=== PATIENT | male | born 1965 | race Caucasian/White ===

== ENCOUNTER 2017-03-04 19:44 | Emergency (ER) | payer OTHER ==
--- NOTE | 2017-03-04 21:07 | ER Document Report ---
ED Medical Screen (RME) - General Chief Complaint: Edema Stated Complaint: EYE AND KNEE PAIN Time Seen by Provider: 03/04/17 20:58 Mode of Arrival: Ambulatory Information source: Patient TRAVEL OUTSIDE OF THE [place] IN LAST 30 DAYS: No - HPI Onset: Other - 3-4 WEEKS Onset/Duration: Gradual Quality of pain: Pressure, Other - TIGHTNESS Severity: Moderate Associated Symptoms: Leg swelling, Shortness of breath. denies: Chest pain, Chills, Fever, Sweating Exacerbated by: Standing, Movement, Walking Relieved by: Other - ELEVATION - Related Data Smoking: Cigarettes Frequency of alcohol use: Occasional - 2-3 TIMES A WEEK Drug Abuse: None Allergies/Adverse Reactions: No Known Allergies Allergy (Unverified 11/24/15 19:59) Past Medical History - General Information source: Patient - Social History Cigarette use (# per day): Yes Frequency of alcohol use: Occasional Lives with: Family Family history: None - Past Medical History Cardiac Medical History: Reports: None Pulmonary Medical History: Reports: Hx Pneumonia EENT Medical History: Reports: None Neurological Medical History: Reports: None Endocrine Medical History: Reports: None Renal/ Medical History: Reports: Other - L. HEMINEPHRECTOMY. Denies: Hx Peritoneal Dialysis Malignancy Medical History: Reports Hx Renal (Kidney) Cancer GI Medical History: Reports: Hx Gastroesophageal Reflux Disease Psychiatric Medical History: Reports: None Past Surgical History: Reports: Hx Adenoidectomy, Hx Herniorrhaphy, Hx Kidney ( Renal Surgery), Hx Myringotomy Review of Systems - Review of Systems Constitutional: No symptoms reported EENT: No symptoms reported Cardiovascular: See HPI Respiratory: See HPI Gastrointestinal: No symptoms reported Genitourinary: No symptoms reported Musculoskeletal: No symptoms reported Skin: See HPI Neurological/Psychological: No symptoms reported Physical Exam - Vital signs Vitals: Temp Pulse Resp BP Pulse Ox 98.5 F 97 18 160/101 H 94 03/04/17 20:08 03/04/17 20:08 03/04/17 20:08 03/04/17 20:08 03/04/17 20:08 Interpretation: Hypertensive. No: Tachycardic, Tachypneic, Febrile - General General appearance: Appears well, Alert In distress: None - HEENT Head: Normocephalic Eyes: Normal Conjunctiva: Normal Ears: Normal Nasal: Normal Mouth/Lips: Normal Mucous membranes: Normal - Respiratory Respiratory status: No respiratory distress Breath sounds: Normal - Cardiovascular Rhythm: Regular Murmur: No Gallop: S3 gallop - Abdominal Inspection: Obese - Extremities General upper extremity: Normal inspection General lower extremity: Edema - 3+, BILAT. Calf: Tender, Other - ERYTHEMA - Neurological Neuro grossly intact: Yes - Psychological Associated symptoms: Normal affect, Normal mood - Skin Skin Temperature: Warm Skin Moisture: Dry Skin Color: Normal Skin Turgor: Elastic Skin irregularity: Erythema - BOTH LEGS, Tender indurated area - BOTH LEGS, OOZING YELLOW FLUID Irregularity with: Swelling, Tenderness, Warmth, Weeping Course - Vital Signs Vital signs: Temp Pulse Resp BP Pulse Ox 98.5 F 97 18 160/101 H 94 03/04/17 20:08 03/04/17 20:08 03/04/17 20:08 03/04/17 20:08 03/04/17 20:08
[2017-03-04 21:28] LABS: ABSOLUTE BASOPHILS # (AUTO) 0.1 10^3/uL (0.0-0.2); ABSOLUTE LYMPHOCYTES (AUTO) 1.8 10^3/uL (0.5-4.7); ABSOLUTE MONOCYTES (AUTO) 1.2 10^3/uL (0.1-1.4); ABSOLUTE NEUT (AUTO) 7.5 10^3/uL (1.7-8.2); BASOPHILS % (AUTO) 0.6 % (0-2); EOSINOPHILS % (AUTO) 8.7 % (0-6); HEMATOCRIT 46.1 % (37.9-51.0); HEMOGLOBIN 15.2 g/dL (13.5-17.0); HGB HCT DIFFERENCE -0.5; LYMPHOCYTES % (AUTO) 15.6 % (13-45); MEAN CORPUSCULAR HEMOGLOBIN 29.5 pg (27.0-33.4); MEAN CORPUSCULAR HGB CONC 32.9 g/dL (32.0-36.0); MEAN CORPUSCULAR VOLUME 90 fl (80-97); MONOCYTES % (AUTO) 10.1 % (3-13); RED BLOOD COUNT 5.15 10^6/uL (4.35-5.55); RED CELL DISTRIBUTION WIDTH 14.9 % (11.5-14.0); WHITE BLOOD COUNT 11.6 10^3/uL (4.0-10.5)
[2017-03-04 21:28] LABS: APPEARANCE,URINE SLIGHTLY-CLOUDY; BILIRUBIN,URINE NEGATIVE (NEGATIVE); GLUCOSE, URINE NEGATIVE (NEGATIVE); KETONES,URINE NEGATIVE (NEGATIVE); LEUKOCYTE ESTERASE,URINE TRACE (NEGATIVE); NITRITE,URINE NEGATIVE (NEGATIVE); PROTEIN,URINE NEGATIVE (NEGATIVE); URINE SPECIFIC GRAVITY 1.026; UROBILINOGEN,URINE NEGATIVE mg/dL (<2.0)
[2017-03-04 21:41] LABS: ALANINE AMINOTRANSFERASE 41 U/L (21-72); ALBUMIN 3.8 g/dL (3.5-5.0); ALKALINE PHOSPHATASE 121 U/L (38-126); ANION GAP 8 (5-19); ASPARTATE AMINO TRANSFERASE 21 U/L (17-59); BILIRUBIN,DIRECT 0.4 mg/dL (0.0-0.4); BILIRUBIN,TOTAL 0.4 mg/dL (0.2-1.3); BLOOD UREA NITROGEN 17 mg/dL (7-20); CALCIUM 9.4 mg/dL (8.4-10.2); CARBON DIOXIDE 27 mmol/L (22-30); CHLORIDE 106 mmol/L (98-107); CREATINE KINASE 85 U/L (55-170); CREATININE RESULT 1.33 mg/dL (0.52-1.25); GLUCOSE 110 mg/dL (75-110); POTASSIUM 4.1 mmol/L (3.6-5.0)
[2017-03-04 21:53] LABS: CREATINE KINASE MB 0.75 ng/mL (<4.55)
[2017-03-04 21:54] LABS: TROPONIN I < 0.012 ng/mL
--- NOTE | 2017-03-04 22:30 | ER Document Report ---
ED Extremity Problem, Lower - General Mode of Arrival: Ambulatory Information source: Patient TRAVEL OUTSIDE OF THE [place] IN LAST 30 DAYS: No - HPI Patient complains to provider of: Pain, Swelling Location: Leg Occurred: Other - Refer to HPI notes Onset/Duration: Gradual, Persistent Exacerbated by: Movement, Walking Relieved by: Elevation, Rest <SIDNEY HSU - Last Filed: 03/04/17 23:04> <ANILA MILNER - Last Filed: 03/05/17 01:18> - General Chief Complaint: Edema Stated Complaint: EYE AND KNEE PAIN Time Seen by Provider: 03/04/17 20:58 Notes: Patient is a 52 year old male presenting to the emergency department for bilateral leg edema and erythema. Patient states he has had increased swelling to his lower extremities bilaterally over the past month and it has gotten progressively worse over the past 2-3 days. Patient states over the past 2-3 days he has had erythema and increased pain as well as some oozing of fluid from scabbed areas to his legs bilaterally. Patient states he has tried compression stockings and they just move the fluid into his thighs. Patient states his symptoms are exacerbated with movement and and walking and relieved with elevation. Patinet states denies any chest pain, chills, fevers, or sweats. Patient has a history of GERD for which he is taking Prilosec 20 mg x2 per day, a left partial heminephrectomy, and a left adrenal mass which is still present but is "persistently stable" according to a CT reading in June 2016. Patient has no known drug allergies. Patient's Primary Care Physician is the [facility]. (SIDNEY HSU) - Related Data Allergies/Adverse Reactions: No Known Allergies Allergy (Unverified 11/24/15 19:59) Past Medical History - General Information source: Patient - Social History Smoking Status: Current Every Day Smoker Cigarette use (# per day): Yes Frequency of alcohol use: Occasional Drug Abuse: None Lives with: Family Family History: None Patient has suicidal ideation: No Patient has homicidal ideation: No Pulmonary Medical History: Reports: Hx Pneumonia Renal/ Medical History: Reports: Other - Left partial Heminephrectomy Malignancy Medical History: Reports Hx Renal (Kidney) Cancer, Reports Other - left adrenal mass, 2015 it was persistently stable according to CT scan GI Medical History: Reports: Hx Gastroesophageal Reflux Disease - Prilosec Past Surgical History: Reports: Hx Adenoidectomy, Hx Herniorrhaphy, Hx Kidney ( Renal Surgery), Hx Myringotomy <SIDNEY HSU - Last Filed: 03/04/17 23:04> Review of Systems - Review of Systems Constitutional: No symptoms reported EENT: No symptoms reported Cardiovascular: No symptoms reported Respiratory: No symptoms reported Gastrointestinal: No symptoms reported Genitourinary: No symptoms reported Male Genitourinary: No symptoms reported Musculoskeletal: See HPI, Leg swelling Skin: See HPI, Change in color Hematologic/Lymphatic: No symptoms reported Neurological/Psychological: No symptoms reported -: Yes All other systems reviewed and negative <SIDNEY HSU - Last Filed: 03/04/17 23:04> Physical Exam - Vital signs Interpretation: Hypertensive - General General appearance: Appears well, Alert In distress: Mild - HEENT Head: Normocephalic, Atraumatic Eyes: Normal Pupils: PERRL Mucous membranes: Moist - Respiratory Respiratory status: No respiratory distress - Cardiovascular Rhythm: Regular - Abdominal Inspection: Normal Distension: No distension Bowel sounds: Normal Tenderness: Nontender Organomegaly: No organomegaly - Back Back: Normal, Nontender - Extremities General upper extremity: Normal inspection, Normal ROM, Normal strength General lower extremity: Edema - lower extremities are tight with edema which is worse on the left than the right - Neurological Neuro grossly intact: Yes Cognition: Normal Orientation: AAOx4 [place] Coma Scale Eye Opening: Spontaneous [place] Coma Scale Verbal: Oriented Rubi Coma Scale Motor: Obeys Commands [place] Coma Scale Total: 15 Speech: Normal - Psychological Associated symptoms: Normal affect, Normal mood - Skin Skin Temperature: Warm Skin irregularity: other - lower extremeties are erythematous, warm, and tender to palpatation bilaterally; there is yellow serous fluid oozing from some of the scabs on the skin bilaterally <SIDNEY HSU - Last Filed: 03/04/17 23:04> <ANILA MILNER - Last Filed: 03/05/17 01:18> - Vital signs Vitals: Temp Pulse Resp BP Pulse Ox 98.5 F 97 18 160/101 H 94 03/04/17 20:08 03/04/17 20:08 03/04/17 20:08 03/04/17 20:08 03/04/17 20:08 Course - Laboratory Result Diagrams: 03/04/17 21:05 03/04/17 21:05 <SIDNEY HSU - Last Filed: 03/04/17 23:04> - Laboratory Result Diagrams: 03/04/17 21:05 03/04/17 21:05 - Diagnostic Test Radiology reviewed: Image reviewed, Reports reviewed - The CT scans do not show any venous obstruction. The left adrenal mass remains unchanged from previous CT scans. There appears to be a new heterogeneous mass on the left kidney that is worrisome for tumor recurrence. <ANILA MILNER - Last Filed: 03/05/17 01:18> - Vital Signs Vital signs: Temp Pulse Resp BP Pulse Ox 98.5 F 97 18 160/101 H 94 03/04/17 20:08 03/04/17 20:08 03/04/17 20:08 03/04/17 20:08 03/04/17 20:08 - Laboratory Laboratory results interpreted by me: 03/04/17 03/04/17 03/04/17 21:05 21:05 21:05 WBC 11.6 H RDW 14.9 H Eosinophils % 8.7 H Absolute Eosinophils 1.0 H D-Dimer 1.47 H Creatinine 1.33 H Est GFR (Non-Af Amer) 57 L Ur Leukocyte Esterase Urine Ascorbic Acid 03/04/17 21:10 WBC RDW Eosinophils % Absolute Eosinophils D-Dimer Creatinine Est GFR (Non-Af Amer) Ur Leukocyte Esterase TRACE H Urine Ascorbic Acid 40 H Discharge <SIDNEY HSU - Last Filed: 03/04/17 23:04> <ALFANILA - Last Filed: 03/05/17 01:18> - Discharge Clinical Impression: Bilateral lower leg cellulitis, Left renal mass, Peripheral edema Condition: Stable Disposition: HOME, SELF-CARE Additional Instructions: Cellulitis: You have an infection of your skin and underlying soft tissues called cellulitis. This is due to bacteria, which can enter through any break in the skin, or even through an irritated hair follicle. Untreated, cellulitis will usually worsen. Antibiotics are required. Usually, warm packs or warm soaks, and elevation of the infected area are recommended. You should start getting better within 24 to 36 hours. Most infections respond quickly to the right medication. Follow-up care is important, however, to check for abscess (boil) formation, unsuspected foreign body, or resistant infection. If you develop fever, chills, or if the area of infection is becoming rapidly more swollen or painful, call the doctor at once. Edema, Peripheral: You have swelling in your legs. This is called peripheral edema. It can be caused by "leaky capillaries," inflammation, disease of the leg veins, or excess salt and water in your body. Edema may be a sign of heart, kidney, or liver disease. A medical evaluation can determine if there is a serious underlying cause for your edema. Avoid prolonged standing. If you must sit for a long time, occasionally get up and walk around or elevate your legs. Support stockings can be helpful in limiting swelling. Often diuretic or water pills are used to remove excess salt and water from your body. Call the doctor or return if you develop increased swelling, pain, or redness, shortness of breath, chest pain, or any other significant change. High Blood Pressure: When your blood pressure was taken today it was elevated. Pre-hypertension/Hypertension: The patient has been informed that they may have pre-hypertension or Hypertension based on a blood pressure reading in the emergency department. I recommend that the patient call the primary care provider listed on their dischargge instructions or a physician of their choice this wee to arrage follow up for further evaluation of possible pre- hypertension or Hypertension. Sometimes, stress or illness causes a temporary elevation of your blood pressure. We suggest that you get your blood pressure measured three more times during the next few days to see if this is more than a temporary abnormality. If your blood pressure is greater than 150/90 on each occasion, you must have treatment. Some simple things you can do to help are: If you have blood pressure medicine but aren't using it regularly, start taking it again. Get some aerobic exercise for at least 20 minutes on a daily basis. (See your doctor before beginning a new exercise program.) Eat a low-fat diet. Lose excess weight. Avoid salty foods and avoid adding salt to any of the foods you eat. Avoid diet pills, decongestants, "energizing" herbs, and other medicines that elevate blood pressure. If left untreated, hypertension greatly enhances your risk for developing heart disease and strokes. Please don't ignore this problem. Left Renal Mass: A new mass was seen on your left kidney by CT scan today, compared to the last CT scan done on 06/28/2016. YOUR BLOOD PRESSURE WAS ELEVATED TODAY. YOUR EDEMA AND SCRATCHING HAS CAUSED THE SKIN INFECTION IN THE LEGS. YOUR CT SCAN IS WORRISOME FOR A NEW MASS ON THE LEFT KIDNEY. TAKE THE MEDICATIONS PRESCRIBED. ELEVATE THE FEET ALL THE TIME. KEEP THE SKIN OF THE LEGS CLEAN AND MOISTURIZED. CHECK YOUR BLOOD PRESSURE EVERY DAY. FOLLOW UP WITH YOUR DOCTOR THIS WEEK TO REVIEW ALL OF THE ISSUES IDENTIFIED TONIGHT. RETURN TO THE EMERGENCY ROOM IF ANY NEW OR WORSENING SYMPTOMS. Prescriptions: Cephalexin Monohydrate [Keflex 500 mg Capsule] 500 mg PO QID #28 capsule Oxycodone HCl/Acetaminophen [Percocet 5-325 mg Tablet] 1 - 2 tab PO ASDIR PRN # 15 tablet PRN Reason: Referrals: BIJAN YOUNGBLOOD MD [Primary Care Provider] - Follow up in 3-5 days Scribe Attestation: 03/05/17 01:18 I personally performed the services described in the documentation, reviewed and edited the documentation which was dictated to the scribe in my presence, and it accurately records my words and actions. (ANILA MILNER) Scribe Documentation - Scribe Written by Otoniel:: Otoniel Gipson 03/04/17 22:30 acting as scribe for :: Alf <SIDNEY HSU - Last Filed: 03/04/17 23:04>
--- NOTE | 2017-03-04 22:31 | RADIOLOGY REPORT (SQ) ---
EXAM DESCRIPTION: CHEST PA/LAT COMPLETED DATE/TIME: 03/04/2017 10:23 pm REASON FOR STUDY: EDEMA COMPARISON: 11/24/2015 EXAM PARAMETERS: NUMBER OF VIEWS: two views TECHNIQUE: Digital Frontal and Lateral radiographic views of the chest acquired. RADIATION DOSE: NA LIMITATIONS: none FINDINGS: LUNGS AND PLEURA: No opacities, masses or pneumothorax. No pleural effusion. MEDIASTINUM AND HILAR STRUCTURES: No masses or contour abnormalities. HEART AND VASCULAR STRUCTURES: Heart stable in size. No evidence for failure. BONES: No acute findings. HARDWARE: None in the chest. OTHER: No other significant finding. IMPRESSION: NO SIGNIFICANT RADIOGRAPHIC FINDING IN THE CHEST. TECHNICAL DOCUMENTATION: JOB ID: [id number] [employer]- All Rights Reserved
--- NOTE | 2017-03-05 00:33 | RADIOLOGY REPORT (SQ) ---
EXAM DESCRIPTION: CT CHEST WITH COMPLETED DATE/TIME: 03/05/2017 12:10 am REASON FOR STUDY: bilat leg edema, adrenal mass, renal cancer COMPARISON: CT abdomen and pelvis 03/04/2017, CT chest/abdomen/pelvis 11/24/2015 TECHNIQUE: CT scan of the chest performed using helical scanning technique with dynamic intravenous contrast injection. Images reviewed with lung, soft tissue and bone windows. Reconstructed coronal and sagittal MPR images reviewed. All images stored on PACS. All CT scanners at this facility use dose modulation, iterative reconstruction, and/or weight based d osing when appropriate to reduce radiation dose to as low as reasonably achievable (ALARA). [facility]: Dose Right [facility]: CareDose [facility]: Dose Right [facility]: Teradose 4D [facility]: Bright!Tax CONTRAST TYPE AND DOSE: 100mL Isovue 300- low osmolar. RENAL FUNCTION: Creatinine 1.33 RADIATION DOSE: 41.62 mGy. LIMITATIONS: None. FINDINGS: LUNGS AND PLEURA: No consolidation, pleural effusion or pneumothorax. Mild emphysematous changes in the upper lobes. HILAR AND MEDIASTINAL STRUCTURES: No identified masses or abnormal nodes. HEART AND VASCULAR STRUCTURES: No thoracic aortic aneurysm or dissection. No pericardial effusion. HARDWARE: None in the chest. UPPER ABDOMEN: See separate report of the CT of the abdomen. THYROID AND OTHER SOFT TISSUES: No masses. No adenopathy. BONES: Remote fracture at the sternum. Mild multilevel degenerative changes in the spine. IMPRESSION: No acute findings. Mild emphysema. TECHNICAL DOCUMENTATION: JOB ID: [id number] [place]-64 Quality ID # [id number]: Final reports with documentation of one or more dose reduction techniques (e.g., Au tomated exposure control, adjustment of the mA and/or kV according to patient size, use of iterative reconstruction technique) 2010 [employer]- All Rights Reserved
--- NOTE | 2017-03-05 00:48 | RADIOLOGY REPORT (SQ) ---
EXAM DESCRIPTION: CT ABD/PELVIS WITH IV ONLY COMPLETED DATE/TIME: 03/05/2017 12:19 am REASON FOR STUDY: bilat leg edema, adrenal mass, renal cancer . Status post left partial nephrecto my. COMPARISON: CT chest 03/04/2017, CT abdomen and pelvis 11/24/2015, 06/28/2016. TECHNIQUE: CT scan of the abdomen and pelvis performed using helical scanning technique with dynamic intravenous contrast injection. No oral contrast. Images reviewed with lung, soft tissue, and bone windows. Reconstructed coronal and sagittal MPR images reviewed. Delayed images for evaluation of the urinary system also acquired. All images stored on PACS. All CT scanners at this facility use dose modulation, iterative reconstruction, and/or weight based d osing when appropriate to reduce radiation dose to as low as reasonably achievable (ALARA). [facility]: Dose Right [facility]: CareDose [facility]: Dose Right [facility]: Teradose 4D [facility]: IP [employer] CONTRAST TYPE AND DOSE: 100mL Isovue 300- low osmolar. RENAL FUNCTION: Creatinine 1.33 RADIATION DOSE: mGy. LIMITATIONS: None. FINDINGS: LOWER CHEST: No consolidation or pleural effusion. There is a small hiatal hernia. LIVER: Normal size. No masses or dilated ducts. SPLEEN: Normal size. PANCREAS: No significant calcifications. No adjacent inflammation or peripancreatic fluid collections . Pancreatic duct not dilated. GALLBLADDER: Contracted. ADRENAL GLANDS: The right adrenal gland is unremarkable. Redemonstration of 2.5 cm low-density mass at the left adrenal gland, not significantly changed in the interval. RIGHT KIDNEY AND URETER: No solid masses. No hydronephrosis or hydroureter. LEFT KIDNEY AND URETER: Postsurgical changes are seen at the left kidney. There is a 3.4 x 2.5 cm he terogeneous mass at the superior pole of the left kidney. No hydronephrosis or hydroureter. AORTA AND VESSELS: No abdominal aortic aneurysm. RETROPERITONEUM: No retroperitoneal adenopathy, hemorrhage or masses. BOWEL AND PERITONEAL CAVITY: No dilated bowel loops or inflammatory changes. No free fluid or free ai r. APPENDIX: Normal. PELVIS: The urinary bladder is decompressed. There is no pelvic mass. No free fluid. ABDOMINAL WALL: Small fat containing bilateral inguinal hernias BONES: Degenerative changes in the spine with vacuum disc phenomenon at L5-S1. IMPRESSION: Heterogeneous mass at the left kidney, worrisome for tumor recurrence. Stable 2.5 cm low density mass at the left adrenal gland. Small hiatal hernia. TECHNICAL DOCUMENTATION: JOB ID: [id number] PR- Quality ID # [id number]: Final reports with documentation of one or more dose reduction techniques (e.g., Au tomated exposure control, adjustment of the mA and/or kV according to patient size, use of iterative reconstruction technique) 2010 [employer]- All Rights Reserved
[2017-03-05] MEDS ORDERED: OXYCODONE-ACETAMINOPHEN 5-325 MG TABLET PO ONE (01:18)
[2017-03-05] MEDS ORDERED: CEPHALEXIN 500 MG CAPSULE PO ONE (01:19)
[2017-03-05] MEDS ORDERED: HYDROCODONE/ACETAMINOPHEN 5-325 MG 6 TAB/DSPK PO PRN (01:19)
[2017-03-05] MEDS ORDERED: ONDANSETRON ODT 4 MG TAB (6 TAB/DSPK) PO PRN (01:36)
[2017-03-05 02:11] VITALS: BP 147/93
--- NOTE | 2017-03-05 10:45 | EKG REPORT ---
SEVERITY:- NORMAL ECG - SINUS RHYTHM : Confirmed by: Courtney Rodrigez 05-Mar-2017 10:45:29
== END 2017-03-05 01:50 | disposition home or self-care (01) ==
LOC: ER 19:44
DX: L03.116 Cellulitis of left lower limb (principal); L03.115 Cellulitis of right lower limb; N28.89 Other specified disorders of kidney and ureter; R60.9 Edema, unspecified; H57.10 Ocular pain, unspecified eye; M79.89 Other specified soft tissue disorders; F17.210 Nicotine dependence, cigarettes, uncomplicated
CPT/HCPCS: 36415; 71020; 71260; 74177; 80053; 81001; 82550; 82553; 83880; 84484; 85025; 85379; 93005; 93010; 99284

== ENCOUNTER 2017-03-06 18:14 | Emergency (ER) | payer OTHER ==
[2017-03-06] MEDS ORDERED: ONDANSETRON 4 MG TAB.RAPDIS PO ONE (20:19)
[2017-03-06] MEDS ORDERED: CLINDAMYCIN HCL 150 MG CAPSULE PO ONE (20:19)
[2017-03-06] MEDS ORDERED: PREDNISONE 20 MG TABLET PO ONE (20:19)
[2017-03-06] MEDS ORDERED: ALBUTEROL SULFATE HFA (90 MCG/PUFF) 8 GM MDI (1 MDI/ER DISP) IH ONE (20:19)
--- NOTE | 2017-03-06 20:24 | ER Document Report ---
HPI - HPI Patient complains to provider of: Medication reaction Onset: Yesterday Onset/Duration: Gradual Pain Level: 4 Context: States that he was recently placed on an antibiotic 2 days ago for cellulitis to his lower extremities. Patient states that after taking the medication he has had a skin rash and itching. Patient states that his cellulitis to his extremities has started to improve. Patient denies any difficulty breathing, chest pain or difficulty swallowing. Patient does state that he is a smoker but has not previously been told that he has COPD. Patient is requesting a change in his antibiotic prescription and is requesting a nausea medication to take with his antibiotics as antibiotics typically cause him to become nauseated. Associated Symptoms: Nonproductive cough - Cough, Nausea, Other - Skin rash. denies: Vomiting, Sore throat Exacerbated by: Denies Relieved by: Denies Similar symptoms previously: No Recently seen / treated by doctor: No - ROS ROS below otherwise negative: Yes Systems Reviewed and Negative: Yes All other systems reviewed and negative - CONSTITUTIONAL Constitutional: DENIES: Fever, Chills - EENT EENT: DENIES: Sore Throat - NEURO Neurology: DENIES: Headache - CARDIOVASCULAR Cardiovascular: DENIES: Chest pain - RESPIRATORY Respiratory: REPORTS: Coughing - chronic. 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 Family History: None Patient has suicidal ideation: No Patient has homicidal ideation: No Pulmonary Medical History: Reports: Hx Pneumonia Renal/ Medical History: Denies: Hx Peritoneal Dialysis Malignancy Medical History: Reports Hx Renal (Kidney) Cancer GI Medical History: Reports: Hx Gastroesophageal Reflux Disease - Prilosec Past Surgical History: Reports: Hx Adenoidectomy, Hx Herniorrhaphy, Hx Kidney ( Renal Surgery), Hx Myringotomy Vertical Provider Document - CONSTITUTIONAL Agree With Documented VS: Yes Exam Limitations: No Limitations General Appearance: WD/WN, No Apparent Distress - INFECTION CONTROL TRAVEL OUTSIDE OF THE [place] IN LAST 30 DAYS: No - HEENT HEENT: Atraumatic, Normal ENT Exam, Normocephalic Notes: No Angioedema - NECK Neck: Normal Inspection, Supple. negative: Lymphadenopathy-Left, Lymphadenopathy-Right - RESPIRATORY Respiratory: No Respiratory Distress, Chest Non-Tender, Wheezing O2 Sat by Pulse Oximetry: 94 - CARDIOVASCULAR Cardiovascular: Regular Rate, Regular Rhythm, No Murmur - MUSCULOSKELETAL/EXTREMETIES Musculoskeletal/Extremeties: MAEW - NEURO Level of Consciousness: Awake, Alert, Appropriate Motor/Sensory: No Motor Deficit - DERM Integumentary: Warm, Dry, Rash - Scattered erythematous rash to trunk and extremities Erythema of the bilateral lower extremities consistent with reported history of cellulitis. Review of patient's cell phone pictures from his initial visit demonstrate that erythema has decreased. Course - Vital Signs Vital signs: Temp Pulse Resp BP Pulse Ox 98.6 F 103 H 20 149/78 H 94 03/06/17 18:20 03/06/17 18:20 03/06/17 18:20 03/06/17 18:20 03/06/17 18:20 Discharge - Discharge Clinical Impression: Wheezing, Skin rash Reaction, drug, adverse Qualifiers: Encounter type: initial encounter Qualified Code(s): T88.7XXA - Unspecified adverse effect of drug or medicament, initial encounter Condition: Stable Disposition: HOME, SELF-CARE Instructions: Inhaled Bronchodilators ([facility]), Steroid Medication, Antinausea Medication ([facility]), Clindamycin ([facility]) Additional Instructions: Return as needed for any new or worsening symptoms Follow up with your primary care provider for recheck Albuterol inhaler: 2 puffs every 4 hours as needed for wheezing Prescriptions: Clindamycin HCl [Cleocin Hcl] 300 mg PO QID #28 capsule Ondansetron HCl [Zofran 4 mg Tablet] 1 tab PO Q6 PRN #20 tablet PRN Reason: Prednisone [Deltasone 20 mg Tablet] 3 tab PO DAILY 4 Days Referrals: [facility] [Provider Group] - Follow up tomorrow
[2017-03-06 21:11] VITALS: BP 148/76
== END 2017-03-06 21:07 | disposition home or self-care (01) ==
LOC: ER 18:14
DX: L27.0 Generalized skin eruption due to drugs and medicaments taken internally (principal); R06.2 Wheezing; T36.1X5A Adverse effect of cephalosporins and other beta-lactam antibiotics, initial encounter; F17.200 Nicotine dependence, unspecified, uncomplicated; Z85.528 Personal history of other malignant neoplasm of kidney; K21.9 Gastro-esophageal reflux disease without esophagitis
CPT/HCPCS: 99282; S0119; J7512; J3490

== ENCOUNTER 2018-04-15 20:23 | Emergency (ER) | payer OTHER ==
[~2018-04-15 20:23] MED LIST: ROCURONIUM BROMIDE INJ 50 MG/5 ML VIAL IV ONE
[2018-04-15] MEDS ORDERED: MORPHINE SULFATE 10 MG/ML INJ IV ONE (20:46)
[2018-04-15] MEDS ORDERED: METOCLOPRAMIDE HCL INJ/PF 10 MG/2 ML SDV IV ONE (20:48)
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
[2018-04-15] MEDS ORDERED: ONDANSETRON 4 MG TAB.RAPDIS PO ONE (21:00)
[2018-04-15 21:05] LABS: ABSOLUTE BASOPHILS # (AUTO) 0.1 10^3/uL (0.0-0.2); ABSOLUTE EOSINOPHILS # (AUTO) 0.1 10^3/uL (0.0-0.6); ABSOLUTE LYMPHOCYTES (AUTO) 1.4 10^3/uL (0.5-4.7); ABSOLUTE MONOCYTES (AUTO) 1.7 10^3/uL (0.1-1.4); ABSOLUTE NEUT (AUTO) 11.2 10^3/uL (1.7-8.2); BASOPHILS % (AUTO) 0.6 % (0-2); EOSINOPHILS % (AUTO) 0.9 % (0-6); HEMATOCRIT 43.6 % (37.9-51.0); HEMOGLOBIN 14.5 g/dL (13.5-17.0); LYMPHOCYTES % (AUTO) 9.9 % (13-45); MEAN CORPUSCULAR HEMOGLOBIN 28.9 pg (27.0-33.4); MEAN CORPUSCULAR HGB CONC 33.2 g/dL (32.0-36.0); MEAN CORPUSCULAR VOLUME 87 fl (80-97); MONOCYTES % (AUTO) 11.8 % (3-13); PLATELET COUNT 358 10^3/uL (150-450); RED CELL DISTRIBUTION WIDTH 16.3 % (11.5-14.0); SEGMENTED NEUTROPHILS % (AUTO) 76.8 % (42-78); TOTAL CELLS COUNTED % (AUTO) 100 %; WHITE BLOOD COUNT 14.6 10^3/uL (4.0-10.5)
[2018-04-15] MEDS ORDERED: ONDANSETRON 4 MG TAB.RAPDIS ONE (21:05)
[2018-04-15 21:24] LABS: ALANINE AMINOTRANSFERASE 28 U/L (21-72); ALBUMIN 4.1 g/dL (3.5-5.0); ALKALINE PHOSPHATASE 115 U/L (38-126); ANION GAP 11 (5-19); ASPARTATE AMINO TRANSFERASE 26 U/L (17-59); BILIRUBIN,DIRECT 0.4 mg/dL (0.0-0.4); BILIRUBIN,TOTAL 0.8 mg/dL (0.2-1.3); BLOOD UREA NITROGEN 22 mg/dL (7-20); CALCIUM 9.5 mg/dL (8.4-10.2); CARBON DIOXIDE 30 mmol/L (22-30); CHLORIDE 102 mmol/L (98-107); CREATINE KINASE 307 U/L (55-170); GLUCOSE 114 mg/dL (75-110); POTASSIUM 3.9 mmol/L (3.6-5.0); SODIUM 143.2 mmol/L (137-145); TOTAL PROTEIN 7.3 g/dL (6.3-8.2)
[2018-04-15 21:36] LABS: CREATINE KINASE MB 2.48 ng/mL (<4.55)
[2018-04-15 21:39] LABS: TROPONIN I < 0.012 ng/mL
[2018-04-15] MEDS ORDERED: HYDROMORPHONE HCL INJ/PF 2 MG/ML AMPULE IV PRN (21:46)
--- NOTE | 2018-04-15 21:46 | EKG REPORT ---
SEVERITY:- OTHERWISE NORMAL ECG - SINUS TACHYCARDIA : Confirmed by: Kassandra Robles MD 15-Apr-2018 21:46:12
[2018-04-15] MEDS ORDERED: PROPOFOL INJ 200 MG/20 ML VIAL IV ONE ×2 (22:34→23:10)
--- NOTE | 2018-04-15 22:38 | RADIOLOGY REPORT (SQ) ---
EXAM DESCRIPTION: CTA CHEST COMPLETED DATE/TIME: 04/15/2018 10:23 pm REASON FOR STUDY: crush injury COMPARISON: 03/04/2017 TECHNIQUE: CT scan of the chest performed using helical scanning technique with dynamic intravenous contrast injection. Images reviewed with lung, soft tissue and bone windows. Reconstructed coronal and sagittal MPR images reviewed. Additional 3 dimensional post-processing performed to develop Maximal Intensity Projection images ([place] P). All images stored on PACS. All CT scanners at this facility use dose modulation, iterative reconstruction, and/or weight based d osing when appropriate to reduce radiation dose to as low as reasonably achievable (ALARA). [facility]: Dose Right [facility]: CareDose [facility]: Dose Right [facility]: Teradose 4D [facility]: [employer] CONTRAST TYPE AND DOSE: contrast/concentration: Isovue 370.00 mg/ml; Total Contrast Delivered: 86.0 ml; Total Saline Delivered: 110.0 ml Contrast bolus optimized for the pulmonary arteries. Not diagnostic for the aorta. RENAL FUNCTION: BUN 22; creatinine 1.43 RADIATION DOSE: CT Rad equipment meets quality standard of care and radiation dose reduction techniq ues were employed. CTDIvol: 33.1 - 39.8 mGy. DLP: 1641 mGy-cm. . LIMITATIONS: None. FINDINGS: LUNGS AND PLEURA: Large left-sided pneumothorax. Compressive atelectasis of the left lobe s. Dependent atelectasis of the right lobes. Background of mild centrilobular emphysematous change. No pleural effusion. AORTA AND GREAT VESSELS: No aneurysm. Contrast bolus not optimized for the aorta. HEART: No pericardial effusion. No significant coronary artery calcifications. PULMONARY ARTERIES: No emboli visualized in the main pulmonary arteries or the segmental branches. HILAR AND MEDIASTINAL STRUCTURES: There is no mediastinal shift. No identified masses or abnormal no juan. HARDWARE: None in the chest. UPPER ABDOMEN: Limited exam. Re- demonstration of a left adrenal lipid rich adenoma, unchanged. Sta ble appearance of the left kidney superior pole demonstrating a exophytic mass. THYROID AND OTHER SOFT TISSUES: No masses. No adenopathy. BONES: Mildly displaced transverse fractures of left ribs 3 through 7 laterally noting the above desc ribed pneumothorax as well as subcutaneous emphysema tracking along the extrathoracic soft tissues. 3D MIPS: Confirm above findings. OTHER: No other significant finding. IMPRESSION: 1. No pulmonary embolus. 2. Large left-sided pneumothorax without mediastinal shift. This is on the basis of mildly displace d transverse fractures of left ribs 3 through 7 noting associated subcutaneous emphysema as detailed above. COMMENT: Pertinent findings on the imaging study reported as a CRITICAL RESULT to ROUTE RELIEF DRIVER-HELENA Casanova BA RBEE at22:26 on 04/15/2018. Category of Critical Result: Pneumothorax Quality ID # [id number]: Final reports with documentation of one or more dose reduction techniques (e.g., Au tomated exposure control, adjustment of the mA and/or kV according to patient size, use of iterative reconstruction technique) TECHNICAL DOCUMENTATION: JOB ID: [id number] [employer]- All Rights Reserved Reading location - IP/workstation name: [email or web address]
--- NOTE | 2018-04-15 23:03 | RADIOLOGY REPORT (SQ) ---
EXAM DESCRIPTION: XR SHOULDER 2 OR MORE VIEWS, XR HUMERUS COMPLETED DATE/TME: 04/15/2018 20:54 CLINICAL HISTORY: 53 years, Male, pain s/p crush injury COMPARISON: None. NUMBER OF VIEWS: Three views of the left shoulder and two views of the left humerus TECHNIQUE: Internal, external and Y scapular view of the shoulder. AP and lateral views of the humerus. LIMITATIONS: None. FINDINGS: Left glenohumeral joint is maintained. Acromioclavicular distance is maintained. The left clavicle is within normal limits. No acute fracture or dislocation of the left shoulder. No fracture of the left humerus. Partially visualized left lung shows an apical pneumothorax. Additional soft tissue gas in the left chest and supraclavicular region. Striated lucencies projecting in the left mid chest suggesting tracking soft tissue gas. IMPRESSION: 1. No acute osseous finding of the left shoulder or humerus. 2. Left apical pneumothorax and chest soft tissue gas as above. Further imaging with CT chest is recommended. We are currently contacting the referring provider, once contacted an addendum to this report will be issued to document direct communication of the report findings. 2010 [employer]- All Rights Reserved Findings were discussed by Dr. Jorje Selby via telephone with RELATIONSHIP MANAGER ADRIANO CALVO on 04/15/2018 9:58 PM CDT.
--- NOTE | 2018-04-15 23:03 | RADIOLOGY REPORT (SQ) ---
EXAM DESCRIPTION: XR SHOULDER 2 OR MORE VIEWS, XR HUMERUS COMPLETED DATE/TME: 04/15/2018 20:54 CLINICAL HISTORY: 53 years, Male, pain s/p crush injury COMPARISON: None. NUMBER OF VIEWS: Three views of the left shoulder and two views of the left humerus TECHNIQUE: Internal, external and Y scapular view of the shoulder. AP and lateral views of the humerus. LIMITATIONS: None. FINDINGS: Left glenohumeral joint is maintained. Acromioclavicular distance is maintained. The left clavicle is within normal limits. No acute fracture or dislocation of the left shoulder. No fracture of the left humerus. Partially visualized left lung shows an apical pneumothorax. Additional soft tissue gas in the left chest and supraclavicular region. Striated lucencies projecting in the left mid chest suggesting tracking soft tissue gas. IMPRESSION: 1. No acute osseous finding of the left shoulder or humerus. 2. Left apical pneumothorax and chest soft tissue gas as above. Further imaging with CT chest is recommended. We are currently contacting the referring provider, once contacted an addendum to this report will be issued to document direct communication of the report findings. 2010 [employer]- All Rights Reserved Findings were discussed by Dr. Jorje Selby via telephone with BUSINESS COMMUNICATIONS INSTRUCTOR ADRIANO CALVO on 04/15/2018 9:58 PM CDT.
[2018-04-15] MEDS ORDERED: HYDROMORPHONE HCL INJ/PF 2 MG/ML AMPULE IV ONE (23:30)
--- NOTE | 2018-04-15 23:46 | ER Document Report ---
Doctor's Note Notes: 04/15/18 23:45 I was consulted in the management of this patient as he did have a atraumatic left-sided pneumothorax with associated rib fractures. A procedural sedation was undertaken using propofol with adequate sedation achieved. The patient then had a left-sided chest tube 24 Norwegian placed without complication or difficulty. Postplacement chest x-ray does show some curvature of the chest tube but appropriate reexpansion of the lung. No significant blood output into the chest tube. Patient tolerated procedure well, had improved oxygenation thereafter. The case has been discussed with the surgeon Dr. Vasquez who is excepted to his service.
[2018-04-15] MEDS ORDERED: NICOTINE 21 MG/24 HR PATCH.TD24 TD ONE (23:50)
[2018-04-16] MEDS ORDERED: DIPH/PERTUSS(ACELL)/TETANUS VAC/PF 0.5 ML SYR (>=10YO) IM ONE
--- NOTE | 2018-04-16 00:30 | RADIOLOGY REPORT (SQ) ---
CXR- 1 VIEW Clinical history: 53-year-old male who had a recent chest tube placed. Comparison: None. Technique: Two frontal views of the chest are submitted for review. The first frontal view includes just the upper chest. The second frontal view includes just the lower chest. Findings: Chest tube is seen with tip overlying the medial left lower lobe. There is subcutaneous air seen along the subcutaneous soft tissues. Airspace opacity is demonstrated in the mid left lung field. Bone mineralization is decreased. Cardiac silhouette measures within normal. Pulmonary vascularity is unremarkable. Impression: Status post placement of chest tube with limited evaluation given the fact that the chest is cut in two halves.
[2018-04-16] MEDS ORDERED: LORAZEPAM INJ 2 MG/1 ML VIAL IV ONE (00:45)
[2018-04-16] MEDS ORDERED: KETOROLAC TROMETHAMINE 60 MG/2 ML SDV IV PRN (00:50)
[2018-04-16] MEDS ORDERED: NALOXONE HCL INJ/PF 0.4 MG/1 ML SDV ONE ×3 (01:25→02:32)
[2018-04-16] MEDS ORDERED: FLUMAZENIL INJ 0.5 MG/5 ML VIAL IV ONE (02:18)
[2018-04-16] MEDS ORDERED: NALOXONE HCL INJ/PF 0.4 MG/1 ML SDV IV ONE (02:22)
[2018-04-16] MEDS ORDERED: LIDOCAINE 1% INJ-PF (10 MG/ML) 30 ML SDV ONE (02:54)
[2018-04-16] MEDS ORDERED: NALOXONE HCL INJ 2 MG/2 ML DISP.SYRIN ONE ×2 (03:18→03:24)
[2018-04-16 03:34] LABS: ARTERIAL BLOOD BASE EXCESS -4.2 mmol/L; ARTERIAL BLOOD H2CO3 2.58 mmol/L (1.05-1.35); ARTERIAL BLOOD HCO3 27.6 mmol/L (20-26); ARTERIAL BLOOD O2 SATURATION 98.7 % (94-98); ARTERIAL BLOOD PO2 177.7 mmHg (80-100); ARTERIAL BLOOD TOTAL CO2 30.2 mmol/L (23-27)
--- NOTE | 2018-04-16 03:34 | RADIOLOGY REPORT (SQ) ---
EXAM DESCRIPTION: XR CHEST 1 VIEW COMPLETED DATE/TME: 04/16/2018 00:00 CLINICAL HISTORY: hypoxia COMPARISON: 04/15/2018 FINDINGS: Single frontal view of the chest. Cardia mediastinal silhouette is stable. Leads overlie the chest. Interval increase in size of the moderate left-sided pneumothorax with subcutaneous air in the left chest wall. Left chest tube in place. Left basilar opacities likely related to volume loss. Left rib fractures are not well evaluated on this study due to overpenetration. Upper abdominal soft tissues are unremarkable. IMPRESSION: 1. Interval increase in size of now moderate left-sided pneumothorax with left chest tube in place. Interval increase in subcutaneous air in the left chest wall. Correlation for chest tube function recommended. Urgent finding reported to SPEED BELT SANDER Dena Yarbrough at 04/16/2018 2:25 AM CDT
[2018-04-16 03:35] LABS: ARTERIAL BLOOD FIO2 70
[2018-04-16 03:37] LABS: ARTERIAL BLOOD PCO2 85.8 mmHg (35-45); ARTERIAL BLOOD PH 7.13 (7.35-7.45)
[2018-04-16] MEDS ORDERED: ETOMIDATE INJ/PF 20 MG/10 ML SDV IV ONE (03:44)
[2018-04-16] MEDS ORDERED: PROPOFOL 1,000 MG/100 ML INFUS..BTL IV PRN (03:45)
--- NOTE | 2018-04-16 04:38 | RADIOLOGY REPORT (SQ) ---
EXAM DESCRIPTION: XR CHEST 1 VIEW COMPLETED DATE/TME: 04/16/2018 03:36 CLINICAL HISTORY: repeat after readjustment of chest tube COMPARISON: 04/16/2018 FINDINGS: Single frontal view of the chest. Cardia mediastinal silhouette is stable. Improved aeration of the left lung with significant reduction of left-sided pneumothorax. Left chest tube in place. Likely tiny residual left apical pneumothorax. Subcutaneous air in the left chest wall is stable. Leads overlie the chest. Right lung is stable. Left rib fractures again identified. Upper abdominal soft tissues are unremarkable. IMPRESSION: 1. Interval significant reduction in size of left pneumothorax. Possible tiny residual left apical pneumothorax. Left chest tube in place.
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
[2018-04-16 04:53] VITALS: BP 118/80
[2018-04-16] MEDS ORDERED: PROPOFOL 1,000 MG/100 ML INFUS..BTL IV ONE (05:00)
[2018-04-16 05:03] LABS: ARTERIAL BLOOD H2CO3 2.26 mmol/L (1.05-1.35); ARTERIAL BLOOD HCO3 28.2 mmol/L (20-26); ARTERIAL BLOOD O2 SATURATION 92.7 % (94-98); ARTERIAL BLOOD TOTAL CO2 30.5 mmol/L (23-27)
[2018-04-16 05:04] LABS: ARTERIAL BLOOD FIO2 80%
[2018-04-16 05:05] LABS: ARTERIAL BLOOD PH 7.19 (7.35-7.45)
[2018-04-16 05:06] LABS: ARTERIAL BLOOD PCO2 75.2 mmHg (35-45)
[2018-04-16] MEDS ORDERED: ROCURONIUM BROMIDE INJ 50 MG/5 ML VIAL IV ONE (06:02)
== END 2018-04-16 07:16 | disposition short-term general hospital (02) ==
LOC: ER 20:23 → EH 23:57 → UNDOADMIN 23:57 → UNDODISIN 04-16 04:50
DX: S27.0XXA Traumatic pneumothorax, initial encounter (principal); S22.42XA Multiple fractures of ribs, left side, initial encounter for closed fracture; S80.12XA Contusion of left lower leg, initial encounter; M79.89 Other specified soft tissue disorders; V28.0XXA Motorcycle driver injured in noncollision transport accident in nontraffic accident, initial encounter; Y93.89 Activity, other specified; Y92.009 Unspecified place in unspecified non-institutional (private) residence as the place of occurrence of the external cause; J96.02 Acute respiratory failure with hypercapnia; E87.2 Acidosis; F41.9 Anxiety disorder, unspecified; R05 Cough; G47.30 Sleep apnea, unspecified; F12.10 Cannabis abuse, uncomplicated; F17.200 Nicotine dependence, unspecified, uncomplicated; Z88.1 Allergy status to other antibiotic agents; Z79.899 Other long term (current) drug therapy
CPT/HCPCS: 31500; 32551; 93005; 99291; 99292; 99153; 99152; 96374; 36415 ×2; 82553; 82803; 82550; 85025; 80053; 84484 ×2; 71045 ×2; 73060; 73030; 71275; 94660 ×2; 93010; J3490 ×3; S0119; J2704 ×3; J2270; J2310 ×2; J1170 ×2; J2060; 94002

== ENCOUNTER 2018-05-16 16:16 | Emergency (ER) | payer OTHER ==
[2018-05-16] MEDS ORDERED: IPRATROPIUM/ALBUTEROL 0.5-2.5 MG/3 ML AMPUL NEB ONE (17:37)
--- NOTE | 2018-05-16 17:38 | RADIOLOGY REPORT (SQ) ---
EXAM DESCRIPTION: CHEST 2 VIEWS COMPLETED DATE/TIME: 05/16/2018 5:22 pm REASON FOR STUDY: sob hx ptx COMPARISON: 03/04/2017 EXAM PARAMETERS: NUMBER OF VIEWS: two views TECHNIQUE: Digital Frontal and Lateral radiographic views of the chest acquired. RADIATION DOSE: NA LIMITATIONS: none FINDINGS: LUNGS AND PLEURA: Chronic interstitial changes are suggested in the lung bases. No infilt rate or effusion is seen. Pleural thickening is suggested on the left side laterally. MEDIASTINUM AND HILAR STRUCTURES: No masses or contour abnormalities. HEART AND VASCULAR STRUCTURES: Heart normal size. No evidence for failure. BONES: No acute findings. HARDWARE: None in the chest. OTHER: No other significant finding. IMPRESSION: There is pleural thickening along the left that is not seen on the study from 03/04/2017. This may relate to the history of prior pneumothorax. TECHNICAL DOCUMENTATION: JOB ID: [id number] [employer] [facility]- All Rights Reserved Reading location - IP/workstation name: [email or web address]
--- NOTE | 2018-05-16 17:38 | ER Document Report ---
ED Medical Screen (RME) - General Chief Complaint: Leg Swelling Stated Complaint: LEG/ARM SWELLING, DIFFICULTY BREATHING Time Seen by Provider: 05/16/18 17:08 TRAVEL OUTSIDE OF THE [place] IN LAST 30 DAYS: No - HPI Notes: 05/16/18 17:37 Patient coming in shortness of breath swelling recent history of pneumothorax patient denies any chest pain denies any significant shortness of breath. - Related Data Allergies/Adverse Reactions: cephalexin [From Keflex] Allergy (Verified 07/30/17 17:16) dermabond Allergy (Uncoded 07/30/17 17:16) Past Medical History - Social History Chew tobacco use (# tins/day): No Frequency of alcohol use: None Drug Abuse: None Family history: None Pulmonary Medical History: Reports: Hx COPD, Hx Pneumonia Renal/ Medical History: Reports: Hx Kidney Stones. Denies: Hx Peritoneal Dialysis Malignancy Medical History: Reports Hx Renal (Kidney) Cancer GI Medical History: Reports: Hx Gastroesophageal Reflux Disease - Prilosec Past Surgical History: Reports: Hx Abdominal Surgery - multiple hernia repairs, Hx Adenoidectomy, Hx Herniorrhaphy, Hx Kidney (Renal Surgery), Hx Myringotomy - Immunizations History of Influenza Vaccine for 07/2017 - 12/2017 Season: No Review of Systems - Review of Systems Constitutional: Other - Swelling arthralgias Physical Exam - Vital signs Vitals: Temp Pulse Resp BP Pulse Ox 99.4 F 116 H 18 151/84 H 91 L 05/16/18 16:22 05/16/18 16:22 05/16/18 16:22 05/16/18 16:22 05/16/18 16:22 - Respiratory Breath sounds: Wheezing Course - Vital Signs Vital signs: Temp Pulse Resp BP Pulse Ox 99.4 F 116 H 18 151/84 H 91 L 05/16/18 16:22 05/16/18 16:22 05/16/18 16:22 05/16/18 16:22 05/16/18 16:22
[2018-05-16 18:01] LABS: ABSOLUTE BASOPHILS # (AUTO) 0.1 10^3/uL (0.0-0.2); ABSOLUTE MONOCYTES (AUTO) 1.6 10^3/uL (0.1-1.4); ABSOLUTE NEUT (AUTO) 8.3 10^3/uL (1.7-8.2); BASOPHILS % (AUTO) 0.8 % (0-2); EOSINOPHILS % (AUTO) 7.9 % (0-6); HEMATOCRIT 41.1 % (37.9-51.0); HEMOGLOBIN 13.6 g/dL (13.5-17.0); LYMPHOCYTES % (AUTO) 15.1 % (13-45); MEAN CORPUSCULAR HEMOGLOBIN 29.3 pg (27.0-33.4); MEAN CORPUSCULAR HGB CONC 33.2 g/dL (32.0-36.0); MEAN CORPUSCULAR VOLUME 88 fl (80-97); MONOCYTES % (AUTO) 12.7 % (3-13); PLATELET COUNT 337 10^3/uL (150-450); RED BLOOD COUNT 4.66 10^6/uL (4.35-5.55); RED CELL DISTRIBUTION WIDTH 16.7 % (11.5-14.0); SEGMENTED NEUTROPHILS % (AUTO) 63.5 % (42-78); TOTAL CELLS COUNTED % (AUTO) 100 %
[2018-05-16] MEDS ORDERED: METHYLPREDNISOLONE INJ 125 MG/2 ML SDV IV ONE (18:13)
[2018-05-16 18:17] LABS: ALANINE AMINOTRANSFERASE 33 U/L (21-72); ALBUMIN 3.8 g/dL (3.5-5.0); ALKALINE PHOSPHATASE 95 U/L (38-126); ANION GAP 13 (5-19); ASPARTATE AMINO TRANSFERASE 22 U/L (17-59); BILIRUBIN,DIRECT 0.3 mg/dL (0.0-0.4); BILIRUBIN,TOTAL 0.4 mg/dL (0.2-1.3); BLOOD UREA NITROGEN 27 mg/dL (7-20); CALCIUM 9.1 mg/dL (8.4-10.2); CARBON DIOXIDE 25 mmol/L (22-30); CHLORIDE 103 mmol/L (98-107); CREATINE KINASE 91 U/L (55-170); GLUCOSE 96 mg/dL (75-110); POTASSIUM 4.4 mmol/L (3.6-5.0); SODIUM 141.3 mmol/L (137-145); TOTAL PROTEIN 6.9 g/dL (6.3-8.2)
--- NOTE | 2018-05-16 18:20 | ER Document Report ---
ED General - General Chief Complaint: Leg Swelling Stated Complaint: LEG/ARM SWELLING, DIFFICULTY BREATHING Time Seen by Provider: 05/16/18 17:08 TRAVEL OUTSIDE OF THE [place] IN LAST 30 DAYS: No - HPI Notes: 53-year-old male history of COPD, traumatic pneumothorax last month requiring chest tube and intubation, cellulitis, peripheral edema, psoriasis presents with increased swelling of his legs and hands for the past several weeks. Patient states swelling is very painful and it feels as if he is walking on knives. He states toes are discolored and brown. Also reports increasing shortness of breath. Denies known history of coronary disease or congestive heart failure. He has a history of renal cell carcinoma with partial nephrectomy and recent recurrence to his left kidney and adrenal gland found on CT. No plans have yet been made for surgery or chemotherapy. He reports normal urination. He has cut down from 3 packs a day to half pack a day smoking. He has been compliant with inhalers. He denies chest pain. Shortness of breath somewhat improved with neb in triage. - Related Data Allergies/Adverse Reactions: cephalexin [From Keflex] Allergy (Verified 05/16/18 18:12) Sulfa (Sulfonamide Antibiotics) Allergy (Verified 05/16/18 18:12) dermabond Allergy (Uncoded 05/16/18 18:12) Past Medical History - Social History Smoking Status: Current Every Day Smoker Chew tobacco use (# tins/day): No Frequency of alcohol use: None Drug Abuse: None Family History: Reviewed & Not Pertinent Patient has suicidal ideation: No Patient has homicidal ideation: No Pulmonary Medical History: Reports: Hx COPD, Hx Pneumonia, Other - Pneumothorax Renal/ Medical History: Reports: Hx Kidney Stones. Denies: Hx Peritoneal Dialysis Malignancy Medical History: Reports Hx Renal (Kidney) Cancer GI Medical History: Reports: Hx Gastroesophageal Reflux Disease - Prilosec Musculoskeletal Medical History: Reports Hx Arthritis Skin Medical History: Reports Hx Psoriasis Past Surgical History: Reports: Hx Abdominal Surgery - multiple hernia repairs, Hx Adenoidectomy, Hx Herniorrhaphy, Hx Kidney (Renal Surgery), Hx Myringotomy Review of Systems - Review of Systems Notes: Constitutional: Negative for fever. HENT: Negative for sore throat. Eyes: Negative for visual changes. Cardiovascular: Negative for chest pain. Positive for bilateral hand and leg swelling Respiratory: Positive for shortness of breath and wheezing. Gastrointestinal: Negative for abdominal pain, vomiting or diarrhea. Genitourinary: Negative for dysuria. Musculoskeletal: Negative for back pain. Positive for pain in bilateral hands and legs with swelling Skin: Positive for rash. Neurological: Negative for headaches, weakness or numbness. 10 point ROS negative except as marked above and in HPI. Physical Exam - Vital signs Vitals: Temp Pulse Resp BP Pulse Ox 99.4 F 116 H 18 151/84 H 91 L 05/16/18 16:22 05/16/18 16:22 05/16/18 16:22 05/16/18 16:22 05/16/18 16:22 - Notes Notes: PHYSICAL EXAMINATION: GENERAL: Well-appearing, well-nourished and in no acute distress. Morbid obesity HEAD: Atraumatic, normocephalic. EYES: Pupils equal round and reactive to light, extraocular movements intact, conjunctiva are normal. ENT: nares patent, oropharynx clear without exudates. Moist mucous membranes. NECK: Normal range of motion, supple without lymphadenopathy LUNGS: Breath sounds equal. Diffuse wheezing, diminished breath sounds HEART: Regular rate and rhythm, no chest wall tenderness ABDOMEN: Soft, nontender, normoactive bowel sounds. No guarding, no rebound. No masses appreciated. EXTREMITIES: Normal range of motion, 2+ pitting edema bilateral ankles and legs up to knee. 1+ edema bilateral hands. Strong palpable dorsalis pedis pulses. 2 second capillary refill. josias discoloration of bilateral feet up to mid leg. NEUROLOGICAL: Cranial nerves grossly intact. Normal speech, normal gait. Normal sensory and motor exams. PSYCH: Normal mood, normal affect. SKIN: Warm, Dry, normal turgor. Psoriatic rash to left hand Course - Re-evaluation Re-evalutation: 05/16/18 20:22 Workup unremarkable. Patient has chronic kidney disease unchanged from baseline. He has pleural thickening on the left consistent with recent chest tube and pneumothorax. TSH and inflammatory markers unremarkable. No sign of congestive heart failure. Discussed possible psoriatic arthritis, rheumatoid, lupus, other inflammatory conditions and need for follow-up with primary care physician. Wheezing improved. Will give short course of prednisone. Given Lasix in the emergency department with good diuresis. Will not prescribe due to renal insufficiency and no history of congestive heart failure. At this time will discharge with return precautions and follow-up recommendations. Verbal discharge instructions given a the bedside and opportunity for questions given. Medication warnings reviewed. Patient is in agreement with this plan and has verbalized understanding of return precautions and the need for primary care follow-up in the next 24-72 hours. - Vital Signs Vital signs: Temp Pulse Resp BP Pulse Ox 99.4 F 116 H 19 142/99 H 91 L 05/16/18 16:22 05/16/18 16:22 05/16/18 19:01 05/16/18 19:01 05/16/18 19:01 - Laboratory Result Diagrams: 05/16/18 17:32 05/16/18 17:32 Laboratory results interpreted by me: 05/16/18 05/16/18 05/16/18 17:32 17:32 17:32 WBC 13.0 H RDW 16.7 H Eosinophils % 7.9 H Absolute Neutrophils 8.3 H Absolute Monocytes 1.6 H Absolute Eosinophils 1.0 H ESR 41 H BUN 27 H Creatinine 1.32 H Est GFR (Non-Af Amer) 57 L C-Reactive Protein 05/16/18 17:32 WBC RDW Eosinophils % Absolute Neutrophils Absolute Monocytes Absolute Eosinophils ESR BUN Creatinine Est GFR (Non-Af Amer) C-Reactive Protein 10.6 H Discharge - Discharge Clinical Impression: Peripheral edema, Bronchospasm Condition: Stable Disposition: HOME, SELF-CARE Instructions: Edema, Peripheral ([facility]) Additional Instructions: Follow-up with your doctor for further testing as scheduled appointment tomorrow. Return for any worsening or concerning symptoms. Continue inhaler as needed for wheezing. Keep legs elevated. Prescriptions: Prednisone [Deltasone 20 mg Tablet] 2 tab PO DAILY 5 Days tablet
[2018-05-16 18:26] LABS: CREATINE KINASE MB 0.73 ng/mL (<4.55); NT PRO BNP 35 pg/mL (5-900)
[2018-05-16 18:28] LABS: TROPONIN I < 0.012 ng/mL
[2018-05-16] MEDS ORDERED: FUROSEMIDE INJ/PF 40 MG/4 ML SDV IV ONE (18:29)
--- NOTE | 2018-05-16 18:37 | EKG REPORT ---
SEVERITY:- OTHERWISE NORMAL ECG - SINUS TACHYCARDIA : Confirmed by: Jamie Urbano MD 16-May-2018 18:36:22
[2018-05-16] MEDS ORDERED: OXYCODONE HCL IR 5 MG TABLET PO ONE (18:50)
[2018-05-16] MEDS ORDERED: ONDANSETRON HCL INJ/PF 4 MG/2 ML SDV IV ONE (18:59)
[2018-05-16 19:49] LABS: APPEARANCE,URINE CLEAR; BILIRUBIN,URINE NEGATIVE (NEGATIVE); COLOR,URINE YELLOW; GLUCOSE, URINE NEGATIVE (NEGATIVE); KETONES,URINE NEGATIVE (NEGATIVE); LEUKOCYTE ESTERASE,URINE NEGATIVE (NEGATIVE); NITRITE,URINE NEGATIVE (NEGATIVE); PROTEIN,URINE NEGATIVE (NEGATIVE); URINE SPECIFIC GRAVITY 1.011; UROBILINOGEN,URINE NEGATIVE mg/dL (<2.0)
[2018-05-16 21:14] VITALS: BP 134/79
== END 2018-05-16 21:20 | disposition home or self-care (01) ==
LOC: ER 16:16
DX: J98.01 Acute bronchospasm (principal); M79.89 Other specified soft tissue disorders; J44.9 Chronic obstructive pulmonary disease, unspecified; F17.200 Nicotine dependence, unspecified, uncomplicated; Z88.2 Allergy status to sulfonamides
CPT/HCPCS: 93005; 94640; 99284; 96374; 96375; 36415; 82553; 82550; 84443; 85025; 85652; 86140; 80053; 81001; 84484; 83880; 71046; 93010; J1940; J2930; J2405; J7620

== ENCOUNTER 2018-08-20 22:42 | Emergency (ER) | payer OTHER, MEDICAID ==
[2018-08-21] MEDS ORDERED: HYDROMORPHONE HCL INJ/PF 2 MG/ML AMPULE IV PRN (00:07)
[2018-08-21] MEDS ORDERED: ONDANSETRON HCL INJ/PF 4 MG/2 ML SDV IV ONE (00:37)
[2018-08-21] MEDS ORDERED: KETOROLAC TROMETHAMINE INJ/PF 30 MG/1 ML SDV IV ONE (00:37)
--- NOTE | 2018-08-21 00:43 | ER Document Report ---
ED General - General Chief Complaint: Abdominal Pain Stated Complaint: FLANK PAIN Time Seen by Provider: 08/21/18 00:06 Notes: Patient is a 53-year-old male with a past medical history of COPD, obesity, history of traumatic left-sided pneumothorax, history of partial left nephrectomy, who presents with 36 hours of left sided abdominal pain. Patient states that he was lifting lumbar for several hours when he began to develop increasing and progressively worsening throbbing, aching pain over the incisional site of his prior partial nephrectomy on the left flank and left upper abdomen. He states that he noticed a bulging to the area and since that time it has had a progressively worsening, throbbing and continuous pain. Touching the area worsens the pain. Using an abdominal binder improves the pain. States that this feels similar to when his mesh has failed in the past. He has had associated vomiting and diarrhea. No fever or constitutional symptoms. He has not contacted his general doctor regarding today's concerns. TRAVEL OUTSIDE OF THE [place] IN LAST 30 DAYS: No - Related Data Allergies/Adverse Reactions: cephalexin [From Keflex] Allergy (Verified 05/16/18 18:12) Sulfa (Sulfonamide Antibiotics) Allergy (Verified 05/16/18 18:12) dermabond Allergy (Uncoded 05/16/18 18:12) Past Medical History - General Information source: Patient - Social History Smoking Status: Current Every Day Smoker Chew tobacco use (# tins/day): No Frequency of alcohol use: Social Drug Abuse: Marijuana Lives with: Spouse/Significant other Family History: Reviewed & Not Pertinent Patient has suicidal ideation: No Patient has homicidal ideation: No Pulmonary Medical History: Reports: Hx COPD, Hx Pneumonia Renal/ Medical History: Reports: Hx Kidney Stones. Denies: Hx Peritoneal Dialysis Malignancy Medical History: Reports Hx Renal (Kidney) Cancer GI Medical History: Reports: Hx Gastroesophageal Reflux Disease - Prilosec Musculoskeletal Medical History: Reports Hx Arthritis Skin Medical History: Reports Hx Psoriasis Past Surgical History: Reports: Hx Abdominal Surgery - multiple hernia repairs, Hx Adenoidectomy, Hx Herniorrhaphy, Hx Kidney (Renal Surgery), Hx Myringotomy Review of Systems - Review of Systems Notes: Constitutional: Negative for fever. HENT: Negative for sore throat. Eyes: Negative for visual changes. Cardiovascular: Negative for chest pain. Respiratory: Negative for shortness of breath. Gastrointestinal: Positive for left-sided abdominal pain, vomiting and diarrhea Genitourinary: Negative for dysuria. Musculoskeletal: Negative for back pain. Skin: Negative for rash. Neurological: Negative for headaches, weakness or numbness. 10 point ROS negative except as marked above and in HPI. Physical Exam - Vital signs Interpretation: Normal Notes: PHYSICAL EXAMINATION: GENERAL: Appears moderately uncomfortable but in no acute distress HEAD: Atraumatic, normocephalic. EYES: Pupils equal round and reactive to light, extraocular movements intact, sclera anicteric, conjunctiva are normal. ENT: nares patent, oropharynx clear without exudates. Moist mucous membranes. NECK: Normal range of motion, supple without lymphadenopathy LUNGS: Breath sounds clear to auscultation bilaterally and equal. No wheezes rales or rhonchi. HEART: Regular rate and rhythm without murmurs ABDOMEN:obese abdomen, there is a protruding hernia along the incisional line of the left upper abdomen and flank that is tender to palpation and moderately firm. Abdomen is otherwise nontender, no rebound or guarding EXTREMITIES: Normal range of motion, no pitting or edema. No cyanosis. NEUROLOGICAL: No focal neurological deficits. Moves all extremities spontaneously and on command. PSYCH: Normal mood, normal affect. SKIN: Warm, Dry, normal turgor, no rashes or lesions noted. Course - Re-evaluation Re-evalutation: 08/21/18 00:40 Patient presents with 36 hours of what appears to be a large incision hernia along the left flank. There is somewhat firm although remains compressible, moderately tender to palpation. Patient has had nausea and vomiting and diarrheal bowel movements. Area did become swollen and painful after the patient had been lifting lumber for several hours. Proceed with CT scan of the abdomen pelvis this patient reports that this hernia has in the past contained multiple organs including part of his left kidney. Did discuss with Dr. Aly the surgeon on-call who is in agreement with proceeding with CT. 08/21/18 03:27 CT the abdomen pelvis does not show any significant intra-abdominal contents in the left-sided incisional line. Anticipated the patient may have had loss of integrity of the prior mesh and/or scar tissue. Given the absence of any bowel or organs within the hernia itself think the patient is cleared for discharge home and follow-up with surgery as an outpatient for possible surgical management. I discussed this with the patient who is in agreement. - Laboratory Result Diagrams: 08/21/18 01:37 08/21/18 01:37 Laboratory results interpreted by me: 08/21/18 08/21/18 01:37 01:37 WBC 14.5 H RDW 16.5 H Absolute Neutrophils 10.2 H Absolute Monocytes 1.5 H Creatinine 1.26 H Alkaline Phosphatase 131 H - Diagnostic Test Radiology reviewed: Image reviewed, Reports reviewed Radiology results interpreted by me: 08/21/18 03:27 CT abdomen pelvis: No apparent extrusion of intra-abdominal contents into a left -sided hernia. Discharge - Discharge Clinical Impression: Left flank hernia Incisional hernia Qualifiers: Obstruction and gangrene presence: without obstruction or gangrene Qualified Code(s): K43.2 - Incisional hernia without obstruction or gangrene; K43.91 - Incisional hernia, without obstruction or gangrene Condition: Good Disposition: HOME, SELF-CARE Additional Instructions: The CT scan does not show any evidence of intra-abdominal contents within the hernia on your left flank. Your swelling and symptoms are likely due to your scar tissue or mesh failing within the area of your prior surgery. Your labs are otherwise reassuring. There is no immediate indication for emergency surgery. I encourage you to follow-up as an outpatient within the next 24-48 hours with our general surgery clinic. Return if you have worsening pain, persistent vomiting, pass out, or unable to have a bowel movement, or have any other symptoms that are worrisome to you.
[2018-08-21 01:45] LABS: ABSOLUTE BASOPHILS # (AUTO) 0.1 10^3/uL (0.0-0.2); ABSOLUTE EOSINOPHILS # (AUTO) 0.5 10^3/uL (0.0-0.6); ABSOLUTE LYMPHOCYTES (AUTO) 2.1 10^3/uL (0.5-4.7); ABSOLUTE MONOCYTES (AUTO) 1.5 10^3/uL (0.1-1.4); ABSOLUTE NEUT (AUTO) 10.2 10^3/uL (1.7-8.2); EOSINOPHILS % (AUTO) 3.8 % (0-6); HEMOGLOBIN 14.1 g/dL (13.5-17.0); LYMPHOCYTES % (AUTO) 14.3 % (13-45); MEAN CORPUSCULAR HEMOGLOBIN 27.5 pg (27.0-33.4); MEAN CORPUSCULAR HGB CONC 32.9 g/dL (32.0-36.0); MEAN CORPUSCULAR VOLUME 84 fl (80-97); MONOCYTES % (AUTO) 10.2 % (3-13); PLATELET COUNT 402 10^3/uL (150-450); RED BLOOD COUNT 5.15 10^6/uL (4.35-5.55); RED CELL DISTRIBUTION WIDTH 16.5 % (11.5-14.0); SEGMENTED NEUTROPHILS % (AUTO) 70.7 % (42-78); TOTAL CELLS COUNTED % (AUTO) 100 %; WHITE BLOOD COUNT 14.5 10^3/uL (4.0-10.5)
[2018-08-21 02:04] LABS: ALANINE AMINOTRANSFERASE 24 U/L (21-72); ALBUMIN 3.9 g/dL (3.5-5.0); ALKALINE PHOSPHATASE 131 U/L (38-126); ANION GAP 11 (5-19); ASPARTATE AMINO TRANSFERASE 23 U/L (17-59); BILIRUBIN,DIRECT 0.3 mg/dL (0.0-0.4); BILIRUBIN,TOTAL 0.5 mg/dL (0.2-1.3); BLOOD UREA NITROGEN 15 mg/dL (7-20); CALCIUM 9.1 mg/dL (8.4-10.2); CARBON DIOXIDE 27 mmol/L (22-30); CHLORIDE 101 mmol/L (98-107); GLUCOSE 88 mg/dL (75-110); POTASSIUM 4.4 mmol/L (3.6-5.0); SODIUM 138.9 mmol/L (137-145); TOTAL PROTEIN 7.4 g/dL (6.3-8.2)
--- NOTE | 2018-08-21 03:09 | RADIOLOGY REPORT (SQ) ---
EXAM DESCRIPTION: CT ABDOMEN PELVIS WITH IV CONTRAST COMPLETED DATE/TME: 08/21/2018 00:00 CLINICAL HISTORY: 53 years, Male, large left flank hernia, pain COMPARISON: Prior CT 06/28/2016. TECHNIQUE: 461 Images stored on PACS. All CT scanners at this facility use dose modulation, iterative reconstruction, and/or weight based dosing when appropriate to reduce radiation dose to as low as reasonably achievable (ALARA). [facility]: Dose Right [facility]: CareDose [facility]: Dose Right [facility]: Teradose 4D [facility]: [employer] LIMITATIONS: None. FINDINGS: Limited evaluation of the lung bases demonstrates a small left pleural effusion with adjacent pleural thickening. Osseous structures of the abdomen/pelvis are grossly intact. Diffuse fatty infiltrative change to the liver. The spleen, right adrenal glands, pancreas, and right kidney are unremarkable. There is a stable left adrenal mass measuring 2.5 x 1.6 cm. Given the stability this is likely benign. Deformity of the left kidney, as before. Hypodense mass of the superior pole of the left kidney measuring 3.6 x 2.5 cm. 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 No evidence for bowel obstruction. Normal appendix. No free air or free fluid. No adenopathy. IMPRESSION: Negative for acute intra-abdominal/pelvic process. Small left pleural effusion. Fatty infiltrative change to the liver. Stable appearance to the left kidney. Stable left adrenal mass. TECHNICAL DOCUMENTATION: Quality ID # 436: Final reports with documentation of one or more dose reduction techniques (e.g., Automated exposure control, adjustment of the mA and/or kV according to patient size, use of iterative reconstruction technique) 2010 [employer]- All Rights Reserved
[2018-08-21 03:41] LABS: APPEARANCE,URINE SLIGHTLY-CLOUDY; BILIRUBIN,URINE NEGATIVE (NEGATIVE); COLOR,URINE YELLOW; GLUCOSE, URINE NEGATIVE (NEGATIVE); KETONES,URINE NEGATIVE (NEGATIVE); LEUKOCYTE ESTERASE,URINE NEGATIVE (NEGATIVE); NITRITE,URINE NEGATIVE (NEGATIVE); PROTEIN,URINE NEGATIVE (NEGATIVE); UROBILINOGEN,URINE NEGATIVE mg/dL (<2.0)
== END 2018-08-21 04:15 | disposition home or self-care (01) ==
LOC: ER 22:42
DX: K43.2 Incisional hernia without obstruction or gangrene (principal); R11.2 Nausea with vomiting, unspecified; R19.7 Diarrhea, unspecified; J44.9 Chronic obstructive pulmonary disease, unspecified; F17.200 Nicotine dependence, unspecified, uncomplicated; Z90.5 Acquired absence of kidney; Z88.1 Allergy status to other antibiotic agents; Z88.2 Allergy status to sulfonamides; Z88.8 Allergy status to other drugs, medicaments and biological substances; Z85.528 Personal history of other malignant neoplasm of kidney
CPT/HCPCS: 99284; 96374; 96375; 36415; 85025; 80053; 81001; 74177; J1885; J2405

== ENCOUNTER → 2018-12-07 | Outpatient (CLI) | payer MEDICAID ==
[2018-12-07 15:04] LABS: HEMATOCRIT 45.9 % (37.9-51.0); MEAN CORPUSCULAR HEMOGLOBIN 27.6 pg (27.0-33.4); MEAN CORPUSCULAR HGB CONC 32.7 g/dL (32.0-36.0); MEAN CORPUSCULAR VOLUME 84 fl (80-97); PLATELET COUNT 352 10^3/uL (150-450); RED BLOOD COUNT 5.44 10^6/uL (4.35-5.55); RED CELL DISTRIBUTION WIDTH 17.3 % (11.5-14.0); WHITE BLOOD COUNT 11.5 10^3/uL (4.0-10.5)
[2018-12-07 15:18] LABS: ALANINE AMINOTRANSFERASE 19 U/L (21-72); ALBUMIN 4.3 g/dL (3.5-5.0); ALKALINE PHOSPHATASE 125 U/L (38-126); ANION GAP 10 (5-19); ASPARTATE AMINO TRANSFERASE 17 U/L (17-59); BILIRUBIN,DIRECT 0.3 mg/dL (0.0-0.4); BILIRUBIN,TOTAL 0.5 mg/dL (0.2-1.3); BLOOD UREA NITROGEN 15 mg/dL (7-20); CALCIUM 9.9 mg/dL (8.4-10.2); CARBON DIOXIDE 31 mmol/L (22-30); CHLORIDE 100 mmol/L (98-107); CHOLESTEROL 161.29 mg/dL (0-200); GLUCOSE 79 mg/dL (75-110); POTASSIUM 4.2 mmol/L (3.6-5.0); TOTAL PROTEIN 7.2 g/dL (6.3-8.2); TRIGLYCERIDES 203 mg/dL (<150)
[2018-12-07 15:31] LABS: DIRECT LDL 97 mg/dL (<100)
[2018-12-07 15:32] LABS: VLDL CHOLESTEROL 40.6 mg/dL (10-31)
== END ==
LOC: LAB 14:34
PROVIDERS: ATTEND Internal Medicine Cardiovascular Disease
DX: E66.01 Morbid (severe) obesity due to excess calories (principal); E78.00 Pure hypercholesterolemia, unspecified; I10 Essential (primary) hypertension; Z79.899 Other long term (current) drug therapy
CPT/HCPCS: 36415; 80048; 80061; 80076; 82043; 82570; 84443; 85027

== ENCOUNTER → 2018-12-19 | Outpatient (CLI) | payer MEDICAID ==
--- NOTE | 2018-12-19 16:24 | RADIOLOGY REPORT (SQ) ---
EXAM DESCRIPTION: VENOUS BILATERAL LOWER COMPLETED DATE/TIME: 12/19/2018 4:03 pm REASON FOR STUDY: EDEMA R60.9 EDEMA, UNSPECIFIED COMPARISON: None. TECHNIQUE: Dynamic and static walsh scale and color images acquired of both lower extremity venous sy stems. Selected spectral images acquired with additional compression and augmentation maneuvers. Imag es stored on PACS. LIMITATIONS: None. FINDINGS: RIGHT LEG COMMON FEMORAL AND FEMORAL: Normal phasicity, compression and augmentation. No visualized echogenic m aterial on walsh scale. No defects on color images. POPLITEAL: Normal compression and augmentation. No visualized echogenic material on walsh scale. No de fects on color images. CALF VESSELS: Normal compression and augmentation. No visualized echogenic material on walsh scale. No defects on color image. GSV AND SSV: Normal compression. No visualized echogenic material on walsh scale. No defects on color images. ANY DEEP VENOUS INSUFFICIENCY: Not evaluated. ANY EVIDENCE OF POPLITEAL CYST: No. OTHER: No other significant finding. LEFT LEG COMMON FEMORAL AND FEMORAL: Normal phasicity, compression and augmentation. No visualized echogenic m aterial on walsh scale. No defects on color images. POPLITEAL: Normal compression and augmentation. No visualized echogenic material on walsh scale. No de fects on color images. CALF VESSELS: Normal compression and augmentation. No visualized echogenic material on walsh scale. No defects on color images. GSV AND SSV: Normal compression. No visualized echogenic material on walsh scale. No defects on color images. ANY DEEP VENOUS INSUFFICIENCY: Not evaluated. ANY EVIDENCE POPLITEAL CYST: No. OTHER: No other significant finding. IMPRESSION: NO EVIDENCE DVT OR SVT IN EITHER LEG. TECHNICAL DOCUMENTATION: JOB ID: [id number] [employer]- All Rights Reserved Reading location - IP/workstation name: [email or web address]
--- NOTE | 2018-12-21 17:40 | XCELERA REPORT ---
[address] [address] Tel: [phone] Fax: [phone] Lower Extremity Arterial Evaluation Name: WILIAM SKELTON Age: 53 yrs Gender: Male : 1965 Patient Status: Outpatient Patient Location: [facility] Study Date: 12/19/2018 04:01 PM Procedure: Ankle brachial indicies performed. Reason For Study: EDEMA Ordering Physician: SNOW MCRAE Performed By: Juan Manuel Huerta Right Side Arterial Evaluation EDITA :1.05. Multiphasic waveform. Left Side Arterial Evaluation EDITA :1.11. Multiphasic waveform. Interpretation Summary Normal EDITA. Suggesting normal arterial system, within the limitations of this technique. : SNOW MCRAE > Rafael Villalobos
== END ==
LOC: SP 15:04
PROVIDERS: ATTEND Nurse Practitioner Family
DX: R60.9 Edema, unspecified (principal)
CPT/HCPCS: 93922; 93970

== ENCOUNTER → 2019-01-24 | Outpatient (CLI) | payer OTHER, MEDICAID ==
[2019-01-24 09:25] LABS: ANION GAP 7 (5-19); BLOOD UREA NITROGEN 18 mg/dL (7-20); CALCIUM 9.6 mg/dL (8.4-10.2); CARBON DIOXIDE 30 mmol/L (22-30); CHLORIDE 102 mmol/L (98-107); GLUCOSE 97 mg/dL (75-110); POTASSIUM 4.7 mmol/L (3.6-5.0); SODIUM 139.2 mmol/L (137-145)
== END ==
LOC: LAB 08:31
PROVIDERS: ATTEND Internal Medicine Cardiovascular Disease
DX: I10 Essential (primary) hypertension (principal)
CPT/HCPCS: 36415; 80048

== ENCOUNTER → 2019-02-15 | Outpatient (CLI) | payer MEDICAID ==
[2019-02-15 11:14] LABS: HEMATOCRIT 43.7 % (37.9-51.0); HEMOGLOBIN 14.1 g/dL (13.5-17.0); MEAN CORPUSCULAR HEMOGLOBIN 27.2 pg (27.0-33.4); MEAN CORPUSCULAR HGB CONC 32.3 g/dL (32.0-36.0); MEAN CORPUSCULAR VOLUME 84 fl (80-97); PLATELET COUNT 318 10^3/uL (150-450); RED CELL DISTRIBUTION WIDTH 16.5 % (11.5-14.0); WHITE BLOOD COUNT 10.9 10^3/uL (4.0-10.5)
[2019-02-15 11:26] LABS: INTERNATIONAL RATION (INR) 0.89; PROTHROMBIN TIME 12.5 SEC (11.4-15.4)
[2019-02-15 11:38] LABS: ANION GAP 9 (5-19); BLOOD UREA NITROGEN 17 mg/dL (7-20); CALCIUM 9.4 mg/dL (8.4-10.2); CARBON DIOXIDE 30 mmol/L (22-30); CHLORIDE 101 mmol/L (98-107); GLUCOSE 95 mg/dL (75-110); POTASSIUM 4.2 mmol/L (3.6-5.0); SODIUM 140.4 mmol/L (137-145)
== END ==
LOC: LAB 10:26
PROVIDERS: ATTEND Internal Medicine Cardiovascular Disease
DX: Z01.818 Encounter for other preprocedural examination (principal); N18.3 Chronic kidney disease, stage 3 (moderate); Z79.899 Other long term (current) drug therapy
CPT/HCPCS: 36415; 80048; 85027; 85610; 85730

== ENCOUNTER 2019-06-21 10:20 | Emergency (ER) | payer MEDICAID ==
[2019-06-21 10:58] LABS: ABSOLUTE BASOPHILS # (AUTO) 0.2 10^3/uL (0.0-0.2); ABSOLUTE EOSINOPHILS # (AUTO) 0.5 10^3/uL (0.0-0.6); ABSOLUTE LYMPHOCYTES (AUTO) 1.9 10^3/uL (0.5-4.7); ABSOLUTE MONOCYTES (AUTO) 1.5 10^3/uL (0.1-1.4); ABSOLUTE NEUT (AUTO) 8.7 10^3/uL (1.7-8.2); BASOPHILS % (AUTO) 1.4 % (0-2); EOSINOPHILS % (AUTO) 3.6 % (0-6); HEMATOCRIT 41.7 % (37.9-51.0); HEMOGLOBIN 13.5 g/dL (13.5-17.0); LYMPHOCYTES % (AUTO) 14.7 % (13-45); MEAN CORPUSCULAR HGB CONC 32.3 g/dL (32.0-36.0); MEAN CORPUSCULAR VOLUME 84 fl (80-97); MONOCYTES % (AUTO) 11.9 % (3-13); PLATELET COUNT 372 10^3/uL (150-450); RED CELL DISTRIBUTION WIDTH 16.4 % (11.5-14.0); SEGMENTED NEUTROPHILS % (AUTO) 68.4 % (42-78); TOTAL CELLS COUNTED % (AUTO) 100 %; WHITE BLOOD COUNT 12.7 10^3/uL (4.0-10.5)
--- NOTE | 2019-06-21 10:58 | ER Document Report ---
ED General - General Chief Complaint: Chest Pain Stated Complaint: SHORTNESS OF BREATH Time Seen by Provider: 06/21/19 10:50 Primary Care Provider: CHRIS CHARLES MD [Primary Care Provider] - Follow up as needed TRAVEL OUTSIDE OF THE [place] IN LAST 30 DAYS: No - HPI Patient complains to provider of: SOb Chest Pain Notes: Morbidly obese 54-year-old male presents with episode of crushing chest pain 05/12 with radiation to his bilateral shoulders. This happened at rest. Lasted about 5 minutes and the patient profoundly short of breath. Patient took nitrog lycerin at home. And albuterol inhaler. Patient has history of COPD, denies history of CHF. Patient has had a cardiac catheterization performed in March 2019 and was told it was clean. Patient feeling markely improved after albuterol treatments Denies fever and chills - Related Data Allergies/Adverse Reactions: cephalexin [From Keflex] Allergy (Verified 05/16/18 18:12) Sulfa (Sulfonamide Antibiotics) Allergy (Verified 05/16/18 18:12) dermabond Allergy (Uncoded 05/16/18 18:12) Past Medical History - Social History Smoking Status: Unknown if Ever Smoked Family History: Reviewed & Not Pertinent Pulmonary Medical History: Reports: Hx COPD, Hx Pneumonia Renal/ Medical History: Reports: Hx Kidney Stones. Denies: Hx Peritoneal Dialysis Malignancy Medical History: Reports Hx Renal (Kidney) Cancer GI Medical History: Reports: Hx Gastroesophageal Reflux Disease - Prilosec Musculoskeletal Medical History: Reports Hx Arthritis Skin Medical History: Reports Hx Psoriasis Past Surgical History: Reports: Hx Abdominal Surgery - multiple hernia repairs, Hx Adenoidectomy, Hx Herniorrhaphy, Hx Kidney (Renal Surgery), Hx Myringotomy Review of Systems - Review of Systems Notes: REVIEW OF SYSTEMS: CONSTITUTIONAL: -fevers, -chills EENT: -eye pain, -difficulty swallowing, -nasal congestion CARDIOVASCULAR: positive chest pain, -syncope. RESPIRATORY: positive SOB GASTROINTESTINAL: -abdominal pain, -nausea, -vomiting, -diarrhea GENITOURINARY: -dysuria, -hematuria MUSCULOSKELETAL: -back pain, -neck pain SKIN: -rash or skin lesions. HEMATOLOGIC: -easy bruising or bleeding. LYMPHATIC: -swollen, enlarged glands. NEUROLOGICAL: -altered mental status or loss of consciousness, -headache, - neurologic symptoms PSYCHIATRIC: -anxiety, -depression. ALL OTHER SYSTEMS REVIEWED AND NEGATIVE. Physical Exam - Vital signs Vitals: Temp 98.5 F 06/21/19 10:55 - Notes Notes: PHYSICAL EXAMINATION: GENERAL: Well-appearing, well-nourished and in no acute distress. HEAD: Atraumatic, normocephalic. EYES: Pupils equal round and reactive to light, extraocular movements intact, sclera anicteric, conjunctiva are normal. ENT: nares patent, oropharynx clear without exudates. Moist mucous membranes. NECK: Normal range of motion, supple without lymphadenopathy LUNGS: Breath sounds clear to auscultation bilaterally and equal. No wheezes rales or rhonchi. HEART: tachycardia and rhythm without murmurs ABDOMEN: Soft, nontender, normoactive bowel sounds. No guarding, no rebound. No masses appreciated. EXTREMITIES: Normal range of motion, no pitting or edema. No cyanosis. NEUROLOGICAL: Cranial nerves grossly intact. Normal speech, normal gait. Normal sensory and motor exams. PSYCH: Normal mood, normal affect. SKIN: Warm, Dry, normal turgor, no rashes or lesions noted. Course - Re-evaluation Re-evalutation: 06/21/19 11:00 54-year-old male presents with now resolved episode of chest pain radiation. Short of breath. Patient does have history of COPD continues to smoke cigarettes. Patient given multiple breathing treatments feeling markedly improved. Patient's EKG has no ischemic changes, extensive lab work-up here unremarkable clinic negative troponin. Patient does have a mild leukocytosis of unknown etiology. Patient had a clean cardiac catheterization performed advisement approximately 3 months ago. Patient has CAT scan chest performed which shows no focal infiltrate pulmonary embolus or other acute process. Discussed patient possible admission or transfer to [place] for further evaluation with chest pain. At this time he declines. States he will follow-up outpatient. Patient has decision-making capacity discussed risk factors signs look for. Patient voices understanding. Patient be discharged home improved follow-up PCP and cardiology advised. 06/21/19 13:41 - Vital Signs Vital signs: Temp Pulse Resp BP Pulse Ox 98.5 F 06/21/19 10:55 - Laboratory Result Diagrams: 06/21/19 10:37 06/21/19 11:40 Laboratory results interpreted by me: 06/21/19 06/21/19 06/21/19 10:23 10:37 11:40 WBC 12.7 H RDW 16.4 H Absolute Neuts (auto) 8.7 H Absolute Monos (auto) 1.5 H Creatinine 1.33 H Est GFR (MDRD) Non-Af 56 L Alkaline Phosphatase 135 H Urine Protein 30 H Urine Ketones TRACE H Urine Blood SMALL H Urine Urobilinogen 2.0 H - EKG Interpretation by Ca EKG shows normal: Sinus rhythm Rate: Tachycardia Additional EKG results interpreted by me: 06/21/19 10:58 Sinus tachycardia 103 bpm, no ST elevation or depression, no pathologic T wave inversions. Discharge - Discharge Clinical Impression: Chest pain Qualifiers: Chest pain type: unspecified Qualified Code(s): R07.9 - Chest pain, unspecified Condition: Stable Disposition: HOME, SELF-CARE Instructions: Angina Episode ([facility]) Referrals: CHRIS CHARLES MD [Primary Care Provider] - Follow up as needed
[2019-06-21 11:11] LABS: APPEARANCE,URINE SLIGHTLY-CLOUDY; BILIRUBIN,URINE NEGATIVE (NEGATIVE); COLOR,URINE YELLOW; GLUCOSE, URINE NEGATIVE (NEGATIVE); KETONES,URINE TRACE mg/dL (NEGATIVE); LEUKOCYTE ESTERASE,URINE NEGATIVE (NEGATIVE); NITRITE,URINE NEGATIVE (NEGATIVE); PROTEIN,URINE 30 mg/dL (NEGATIVE); URINE SPECIFIC GRAVITY 1.027
--- NOTE | 2019-06-21 11:24 | RADIOLOGY REPORT (SQ) ---
EXAM DESCRIPTION: CHEST SINGLE VIEW COMPLETED DATE/TIME: 06/21/2019 11:11 am REASON FOR STUDY: SOB COMPARISON: 05/16/2018 EXAM PARAMETERS: NUMBER OF VIEWS: One view. TECHNIQUE: Single frontal radiographic view of the chest acquired. RADIATION DOSE: NA LIMITATIONS: None. FINDINGS: LUNGS AND PLEURA: No opacities, masses or pneumothorax. No pleural effusion. MEDIASTINUM AND HILAR STRUCTURES: No masses. Contour normal. HEART AND VASCULAR STRUCTURES: Heart normal in size. Normal vasculature. BONES: No acute findings. HARDWARE: None in the chest. OTHER: No other significant finding. IMPRESSION: NO ACUTE RADIOGRAPHIC FINDING IN THE CHEST. TECHNICAL DOCUMENTATION: JOB ID: [id number] [employer]- All Rights Reserved Reading location - IP/workstation name: [email or web address]
[2019-06-21 12:06] LABS: ALBUMIN 3.8 g/dL (3.5-5.0); ALKALINE PHOSPHATASE 135 U/L (38-126); ANION GAP 7 (5-19); ASPARTATE AMINO TRANSFERASE 19 U/L (17-59); BILIRUBIN,DIRECT 0.1 mg/dL (0.0-0.4); BILIRUBIN,TOTAL 0.5 mg/dL (0.2-1.3); BLOOD UREA NITROGEN 19 mg/dL (7-20); CALCIUM 9.3 mg/dL (8.4-10.2); CARBON DIOXIDE 30 mmol/L (22-30); CHLORIDE 100 mmol/L (98-107); GLUCOSE 101 mg/dL (75-110); POTASSIUM 4.8 mmol/L (3.6-5.0); TOTAL PROTEIN 6.8 g/dL (6.3-8.2)
[2019-06-21 12:18] LABS: NT PRO BNP 15 pg/mL (5-900)
[2019-06-21 12:25] LABS: TROPONIN I < 0.012 ng/mL
[2019-06-21] MEDS ORDERED: NORMAL SALINE 1000 ML 1,000 ML IV ONE (13:17)
--- NOTE | 2019-06-21 13:27 | RADIOLOGY REPORT (SQ) ---
EXAM DESCRIPTION: CTA CHEST COMPLETED DATE/TIME: 06/21/2019 1:02 pm REASON FOR STUDY: PE? COMPARISON: 04/15/2018 TECHNIQUE: CT scan of the chest performed using helical scanning technique with dynamic intravenous contrast injection. Images reviewed with lung, soft tissue and bone windows. Reconstructed coronal and sagittal MPR images reviewed. Additional 3 dimensional post-processing performed to develop Maximal Intensity Projection images (TN P). All images stored on PACS. The scan was repeated secondary to poor bolus timing on the initial scan. All CT scanners at this facility use dose modulation, iterative reconstruction, and/or weight based d osing when appropriate to reduce radiation dose to as low as reasonably achievable (ALARA). [facility]: Dose Right [facility]: CareDose [facility]: Dose Right [facility]: Teradose 4D [facility]: [employer] CONTRAST TYPE AND DOSE: contrast/concentration: Isovue 350.00 mg/ml; Total Contrast Delivered: 150.0 ml; Total Saline Delivered: 124.6 ml Contrast bolus adequate for pulmonary arteries and aorta. RENAL FUNCTION: Creatinine 1.3 RADIATION DOSE: CT Rad equipment meets quality standard of care and radiation dose reduction techniq ues were employed. CTDIvol: 19.8 - 41.8 mGy. DLP: 1609 mGy-cm. . LIMITATIONS: None. FINDINGS: LUNGS AND PLEURA: No focal consolidation, pleural effusion or pneumothorax. Bilateral hyp oventilatory change. Pleural thickening along the left lateral hemithorax likely sequelae from prior multiple left-sided rib fractures. AORTA AND GREAT VESSELS: No aneurysm. No dissection. HEART: No pericardial effusion. Enlarged heart. No significant coronary atherosclerosis. PULMONARY ARTERIES: No evidence of central or main lobar pulmonary embolus. Evaluation of distal pul monary artery is limited secondary to bolus timing respiratory motion. HILAR AND MEDIASTINAL STRUCTURES: No identified masses or abnormal nodes. HARDWARE: None in the chest. UPPER ABDOMEN: Stable size and 2.4 cm left adrenal adenoma. Stable partially evaluated fatty lesion on the left upper renal pole, likely angiomyolipoma. THYROID AND OTHER SOFT TISSUES: No masses. No adenopathy. BONES: No acute bony abnormality. No suspicious osseous lesions. Multiple chronic left lateral rib fractures. 3D MIPS: Confirm above findings. OTHER: No other significant finding. IMPRESSION: 1. No evidence of main or lobar pulmonary embolus or other acute intrathoracic process. 2. Sequelae from prior multiple left-sided rib fractures. 3. Cardiomegaly. COMMENT: Quality ID # [id number]: Final reports with documentation of one or more dose reduction techniques (e.g., Automated exposure control, adjustment of the mA and/or kV according to patient size, use of iterative reconstruction technique) TECHNICAL DOCUMENTATION: JOB ID: [id number] [employer]- All Rights Reserved Reading location - IP/workstation name: [email or web address]
--- NOTE | 2019-06-21 13:39 | EKG REPORT ---
SEVERITY:- ABNORMAL ECG - ARTIFACTS SINUS TACHYCARDIA LOW VOLTAGE EKG : Confirmed by: Jamie Urbano MD 21-Jun-2019 13:38:18
[2019-06-21 14:17] VITALS: BP 146/86
== END 2019-06-21 14:20 | disposition home or self-care (01) ==
LOC: ER 10:20
DX: R07.9 Chest pain, unspecified (principal); J44.9 Chronic obstructive pulmonary disease, unspecified; R00.0 Tachycardia, unspecified; R06.02 Shortness of breath; D72.829 Elevated white blood cell count, unspecified; F17.210 Nicotine dependence, cigarettes, uncomplicated; Z98.890 Other specified postprocedural states; Z88.1 Allergy status to other antibiotic agents; Z88.2 Allergy status to sulfonamides; Z88.8 Allergy status to other drugs, medicaments and biological substances; Z87.01 Personal history of pneumonia (recurrent)
CPT/HCPCS: 93005; 36415; 85025; 80053; 81001; 84484; 83880; 71045; 71275; 93010; J7030